=== PATIENT | male | born 1975 | race Caucasian/White ===

== ENCOUNTER 2018-09-28 11:04 | Emergency (ER) | payer OTHER ==
[~2018-09-28] VITALS: Ht 162.6 cm; Wt 102.0 kg
[2018-09-28 13:32] VITALS: BP 164/97
== END 2018-09-28 13:32 | disposition home or self-care (01) ==
LOC: ER 13:01
DX: S70.361A Insect bite (nonvenomous), right thigh, initial encounter (principal); W57.XXXA Bitten or stung by nonvenomous insect and other nonvenomous arthropods, initial encounter; Y93.89 Activity, other specified; Y92.89 Other specified places as the place of occurrence of the external cause; I10 Essential (primary) hypertension; E11.9 Type 2 diabetes mellitus without complications; Z79.899 Other long term (current) drug therapy
CPT/HCPCS: 99283

== ENCOUNTER 2019-01-14 13:27 | Emergency (ER) | payer OTHER ==
[~2019-01-14] VITALS: Ht 165.1 cm; Wt 100.0 kg
[2019-01-14] MEDS ORDERED: ALPRAZOLAM 0.5 MG TABLET PO ONE (14:45)
[2019-01-14 14:48] VITALS: BP 140/99
== END 2019-01-14 17:12 | disposition home or self-care (01) ==
LOC: ER 13:27
DX: F41.9 Anxiety disorder, unspecified (principal); R45.851 Suicidal ideations; E11.9 Type 2 diabetes mellitus without complications; I10 Essential (primary) hypertension
CPT/HCPCS: 99284

== ENCOUNTER 2020-09-04 17:51 | Emergency (ER) | payer OTHER ==
[~2020-09-04] VITALS: Ht 165.1 cm; Wt 100.0 kg
[2020-09-04 17:53] VITALS: BP 160/87
[2020-09-04] MEDS ORDERED: TETRACAINE 0.5% OPHTH DROPS 4ML BOTHEYE ONE (22:15)
[2020-09-04] MEDS ORDERED: FLUORESCEIN SODIUM 1MG/STRIP RIGHTEYE ONE (22:15)
[2020-09-04] MEDS ORDERED: ERYT1OIN6 RIGHTEYE (22:57)
[2020-09-04] MEDS ORDERED: ACET-2708 MT (22:57)
[2020-09-04] MEDS ORDERED: ACETAMINOPHEN 325MG TABLET PO ONE (23:00)
== END 2020-09-04 23:33 | disposition home or self-care (01) ==
LOC: ER 17:51
DX: S05.01XA Injury of conjunctiva and corneal abrasion without foreign body, right eye, initial encounter (principal); W10.8XXA Fall (on) (from) other stairs and steps, initial encounter; Y93.01 Activity, walking, marching and hiking; Y92.018 Other place in single-family (private) house as the place of occurrence of the external cause; I10 Essential (primary) hypertension; E11.9 Type 2 diabetes mellitus without complications
CPT/HCPCS: 99284

== ENCOUNTER 2020-11-30 12:09 | Emergency (ER) | payer OTHER ==
[~2020-11-30] VITALS: Ht 162.6 cm; Wt 102.0 kg
[~2020-11-30 12:09] MED LIST: ACET-2708 MT; ERYT1OIN6 RIGHTEYE
[2020-11-30] MEDS ORDERED: OXYCODONE HCL/ACETAMINOPHEN 5/325MG TABLET PO ONE (13:00)
[2020-11-30] MEDS ORDERED: DEXAMETHASONE 10 MG/ML VIAL IV ONE (15:00)
[2020-11-30 15:16] LABS: CHLORIDE 103 mEq/L (98-107)
[2020-11-30 15:19] LABS: BASOPHILS % 0.6 % (0.0-2.0); HEMATOCRIT. 44.2 % (42.0-52.0); HEMOGLOBIN. 15.4 g/dL (14.0-18.0); LYMPHOCYTES % 19.1 % (20.0-50.0); MEAN CORPUSCULAR HEMOGLOBIN 31.1 pg (28.0-32.0); MEAN CORPUSCULAR VOLUME 89.4 fL (80.0-94.0); MEAN PLATELET VOLUME 11.1 fl (7.4-10.4); MONOCYTES % 6.7 % (2.0-8.0); NEUTROPHILS % 72.6 % (40.0-76.0); PLATELET 184 x1000/uL (130-400); RED BLOOD CELL COUNT 4.95 mill/uL (4.7-6.1); RED CELL DISTRIBUTION WIDTH 13.3 % (11.6-14.6)
[2020-11-30 18:55] VITALS: BP 139/80
== END 2020-11-30 18:58 | disposition home or self-care (01) ==
LOC: ER 12:09
DX: M54.9 Dorsalgia, unspecified (principal); E11.9 Type 2 diabetes mellitus without complications; I10 Essential (primary) hypertension
CPT/HCPCS: 36415; 71045; 72148; 80053; 85025; 96374; 99285; J1100

== ENCOUNTER 2020-12-19 21:58 | Emergency (ER) | payer OTHER ==
[~2020-12-19] VITALS: Ht 162.6 cm; Wt 100.0 kg
[2020-12-19 22:02] VITALS: BP 175/96
[2020-12-19] MEDS ORDERED: KETOROLAC 60MG/2ML VIAL IM ONE (22:45)
[2020-12-19] MEDS ORDERED: METHOCARBAMOL 500MG TABLET PO ONE (22:45)
== END 2020-12-19 22:50 | disposition home or self-care (01) ==
LOC: ER 22:21
DX: M54.59 Other low back pain (principal); G89.29 Other chronic pain; E11.9 Type 2 diabetes mellitus without complications; I10 Essential (primary) hypertension
CPT/HCPCS: 99281